=== PATIENT | female | born 1930 | race Caucasian/White ===

== ENCOUNTER → 2017-03-18 | Outpatient (CLI) | payer MEDICARE | LOC: LABPAT 13:53 | PROVIDERS: ATTEND Orthopaedic Surgery | DX: Z01.810 Encounter for preprocedural cardiovascular examination (principal); Z01.812 Encounter for preprocedural laboratory examination | CPT/HCPCS: 87070; 93005 ==

== ENCOUNTER → 2017-03-21 | Outpatient (CLI) | payer MEDICARE ==
[2017-03-21 12:04] LABS: Appearance,Urine Clear (Clear); Bilirubin,Urine Negative (Negative); Glucose,Urine (UA) 2+ (Negative); Ketones,Urine Negative (Negative); Leukocyte Esterase,Urine Negative (Negative); Nitrite,Urine Negative (Negative); Protein,Urine Negative (Negative); Specific Gravity,Urine 1.005 (1.001-1.035); UA Billing (MACRO vs. MICRO) CHEM; Urobilinogen,Urine <2.0 mg/dL (<2.0)
[2017-03-21 12:15] LABS: Basophils % (A) 0 %; CH 30.4; CHCM 34.4; Eosinophils # (A) 0.1 k/uL (0-0.7); Eosinophils % (A) 1 %; HCT 34.3 % (34.0-46.0); HDW 2.64; HGB 11.9 gm/dL (11.4-16.0); Luc # (Auto) 0.12; Luc % (Auto) 2; Lymphocytes # (A) 1.8 k/uL (1.0-4.8); Lymphocytes % (A) 27 %; MCH 30.8 pg (25.0-35.0); MCHC 34.6 g/dL (31.0-37.0); MCV 88.8 fL (80.0-100.0); Mean Platelet Volume 6.6; Monocytes # (A) 0.4 k/uL (0-1.0); Monocytes % (A) 6 %; Neutrophils # (A) 4.3 k/uL (1.3-7.7); Neutrophils % (A) 64 %; RBC 3.86 m/uL (3.80-5.40); WBC 6.8 k/uL (3.8-10.6); WBC (Perox) 6.83
[2017-03-21 12:18] LABS: Partial Thromboplastin Time 22.9 sec (22.0-30.0); Prothrombin Time 10.4 sec (9.0-12.0)
[2017-03-21 12:23] LABS: ALT 27 U/L (9-52); AST 37 U/L (14-36); Alkaline Phosphatase 54 U/L (38-126); Anion Gap 13 mmol/L; Blood Urea Nitrogen 13 mg/dL (7-17); Calcium 9.7 mg/dL (8.4-10.2); Carbon Dioxide 24 mmol/L (22-30); Chloride 98 mmol/L (98-107); Glucose 230 mg/dL (74-99); Non-African American GFR(MDRD) 53 (>60 ml/min/1.73 sqM); Potassium 4.7 mmol/L (3.5-5.1); Sodium 135 mmol/L (137-145); Total Bilirubin 0.6 mg/dL (0.2-1.3); Total Protein 6.9 g/dL (6.3-8.2)
== END ==
LOC: LABPAT 11:10
PROVIDERS: ATTEND Orthopaedic Surgery
DX: Z01.818 Encounter for other preprocedural examination (principal); Z79.01 Long term (current) use of anticoagulants
CPT/HCPCS: 80053; 81003; 85025; 85610; 85730

== ENCOUNTER 2017-04-01 07:24 | Inpatient (IN) | payer MEDICARE ==
[2017-03-28 10:55] VITALS: BMI 28.2
[~2017-04-01 07:24] MED LIST: ACETAMINOPHEN TAB 500 MG TAB PO ONE; HYDROmorphone 1 MG/ML 1 ML SYRINGE IVP PRN; MELOXICAM 7.5 MG TAB PO ONE; MIDAZOLAM 2 MG/2 ML VIAL IV PRN; TRANEXAMIC ACID 1,000 MG in SODIUM CHLORIDE 0.9% 100 ML IVPB ONE; ceFAZolin 2 GM in SODIUM CHLORIDE 0.9% 100 ML IVPB ONE
[2017-04-01] MEDS: LACTATED RINGERS 1,000 ML IV SCH ×3 (08:43→10:22)
[2017-04-01] MEDS: DEXAMETHASONE SOD PHOSPHATE 10 MG/ML 1 ML VIAL IV ONE ×2 (08:43→08:45)
[2017-04-01] MEDS: ONDANSETRON 4 MG/2 ML VIAL IVP ONE ×2 (08:43→08:45)
[2017-04-01 08:55] LABS: Glucose,Whole Blood 162 mg/dL (75-99)
[2017-04-01] MEDS ORDERED: ROPIVACAINE 1,100 MG, SODIUM CHLORIDE 0.9% 330 ML MISCELLANE PRN ×2 (10:10)
--- NOTE | 2017-04-01 10:12 | P.ONQ ---
Anesthesiology Proc Note - PNB - Peripheral Nerve Block Performed Left Adductor Canal Indication: Acute Post-Operative Pain, Requested by physician (Kiran Ferguson) Sedation Type: Sedate with meaningful contact maintained Preparation: Sterile Dressing Position: Supine Catheter: Indwelling (Pajunk) Needle Types: Other (see comment) (pajunk) Needle Size: 100mm (4") Needle Gauge: 18 Technique: Ultrasound Injectate: 0.5% Ropivacaine (see comment for volume) (18cc) Blood Aspirated: No Pain Paresthesia on Injection Noted: No Resistance on Injection: Normal Events: Uneventful and Well Tolerated
[2017-04-01] MEDS ORDERED: SODIUM CHLORIDE 0.9% 100 ML BAG ONE (10:22)
[2017-04-01] MEDS ORDERED: MIDAZOLAM 2 MG/2 ML VIAL ONE (10:22)
[2017-04-01] MEDS ORDERED: ceFAZolin 3,000 MG in SODIUM CHLORIDE 0.9% IRRIGATIO 3,000 ML IRRIGATION ONE (10:22)
[2017-04-01] MEDS ORDERED: TRANEXAMIC ACID 1,000 MG/10 ML VIAL ONE (10:22)
[2017-04-01] MEDS ORDERED: fentaNYL (PF) 50 MCG/ML 2 ML AMP ONE (10:22)
[2017-04-01] MEDS ORDERED: PROPOFOL 10 MG/ML 20 ML VIAL IV ONE (10:22)
[2017-04-01] MEDS ORDERED: SODIUM CHLORIDE 0.9% 100 ML with ceFAZolin 2,000 MG IV ONE ×2 (10:34)
[2017-04-01] MEDS: ROPIVACAINE 246.25 MG, EPINEPHrine 0.5 MG, KETOROLAC 30 MG, cloNIDine HCL/PF 80 MCG, WA... MISCELLANE ONE ×10 (10:59→11:38)
[2017-04-01] MEDS ORDERED: LACTATED RINGERS 1,000 ML IV ONE (11:16)
--- NOTE | 2017-04-01 11:40 | P.OP ---
Date of Procedure: 04/01/17 Preoperative Diagnosis: Severe osteoarthritis left knee Postoperative Diagnosis: Severe osteoarthritis left knee Procedure(s) Performed: Left total knee arthroplasty Implants: Christian [employer] Nephew Oxinium femoral component size 5, left Christian [employer] Nephew Suzan II left nonporous tibial baseplate size 4 Christian [employer] Nephew size 11 mm Legion XLPE dished articular insert, size 3-4 Christian [employer]hew Suzan II resurfacing patellar component, 32 mm All components were cemented using Marcia bone cement.. The articulation is ceramic on polyethylene. Anesthesia: spinal Surgeon: Kiran Ferguson Avionics Test Technician #1: Wanda Gomez Avionics Test Technician #2: Ariana Mckenzie Estimated Blood Loss (ml): 50 Pathology: other (Bone and cartilage) Condition: stable Disposition: PACU Indications for Procedure: After failure of conservative treatment we discussed the surgical and nonsurgical treatment options at length. Patient wishes to proceed with a total knee arthroplasty. Complications specific to this procedure were discussed at length, including but not limited to infection, bleeding, stiffness , and nerve injury. Patient is aware of all these complications and informed consent was obtained Operative Findings: The operative findings are consistent with severe osteoarthritis of the left knee Description of Procedure: Patient was seen in the preoperative area consent was reviewed and operative site was marked with a skin marker. An adductor canal pain catheter was placed by anesthesia in the preoperative area. Patient was then brought to the operating room and given preoperative antibiotics intravenously. A spinal anesthetic was administered by the anesthesia department. A tourniquet was placed on the upper thigh and the lower extremity was prepped and draped in usual sterile fashion. A gram of transexamic acid was given. A universal timeout was then performed which confirmed the patient's name, surgical site, ALLERGIES, and consent. The lower extremity was then exsanguinated and tourniquet was inflated to 250 mmHg. A standard and anterior midline approach to the knee was performed. The skin and subcutaneous tissue was dissected down to the patellar tendon. A medial parapatellar arthrotomy was then performed. The knee was then extended, the patellar was everted, and the knee was again flexed. Anterior horns of both menisci were excised, and a release was performed to the posterior medial aspect of the knee. On gross visual inspection, there was complete loss of articular cartilage in the medial and patellofemoral joint spaces. There was also significant cartilage damage in the lateral compartment. There were multiple periarticular osteophytes which were then removed with a Ronguer. The femoral canal was then opened with the appropriate drill, and the intramedullary femoral cutting guide was then placed and set for 4 of valgus. The distal femoral cutting block was then pinned in place, and the distal femur was then cut. The cutting block was then removed and the cut was checked for flatness. Next, the sizing guide was then placed and set for 3 external rotation based off of the epicondylar axis and Whitesides line. After the femur was sized, the appropriate 4-in-1 cutting block was then pinned in place. The anterior condyles were cut without notching. The posterior and chamfer cuts were performed while protecting the collateral ligaments. The cutting block was then removed, and the femoral canal was plugged with autologous bone. Attention was then directed to the tibia. The remaining ACL was removed with a Ronguer, and the tibia was then gently subluxed forward with a large bent knee retractor. Any remaining menisci was excised. The posterior lateral corner was cauterized in order to cauterize the lateral geniculate artery. The extra medullary tibial cutting guide was then placed, set for the appropriate rotation , slope, and depth of resection. The proximal tibia cutting guide was then pinned in place. Proximal tibia was then cut and sized. Next trials were then placed with the appropriate-sized insert. The knee was able to fully extend and flex to 130 and was stable throughout all range of motion. The knee was then extended, patella everted. Patella was then measured, and then using an osteotomy guide, the patella was cut at the appropriate level. The patella was then measured and drilled and the patella trial was then placed. The knee was then taken through range of motion with the patella trial and the patella tracked normally. The knee was then extended patella trial was then removed and the patella was everted. Knee was then flexed and lug holes were drilled through the femoral trial and the femoral trial was then removed. The tibial was then exposed, and the tibial broach guide was then pinned in place after it was set for the appropriate rotation to allow for the most coverage without overhang. The tibia was then reamed and broached. The cut surfaces of bone were then irrigated with pulsatile lavage. The posterior structures were injected with the ropivacaine solution. The knee was also irrigated with Irrisept solution. The components were then opened, the cement was mixed, and the components were then cemented in place. The cement was allowed to harden with the knee in full extension. While the cement was hardening, the remaining soft tissues were then injected with a ropivacaine solution, which consisted of 246.25 mg of ropivacaine, 0.5 mg of epinephrine, 30 mg of Toradol, 80 g of clonidine, and 48.45 mL of sterile water, for a total of 100 mL of fluid injected. After the cemented hardened. The tourniquet was released, and hemostasis was obtained. A second gram of transexamic acid was given. The knee was again irrigated. The knee was again taken through range of motion and found to be stable throughout all range of motion of 0-130 , and the patella tracked normally. The fascia was then closed with #2 strata fix suture. The subcutaneous tissue was closed with 3-0 Vicryl and 3-0 strata fix. Dermabond tape was used for the skin and placed with the knee in flexion. The patient was placed in a sterile dressing. Patient was then transferred to recovery room in stable condition. The seismic survey assistant C[place]AND Saravia was required due the complexity surgery and the need for a skilled registered nurse surgical services. She assisted in positioning, draping , retraction, and closure of the wound.
[2017-04-01] MEDS ORDERED: NA PHOS,M-B/NA PHOS,DI-BA 133 ML ENEMA RECTAL PRN (12:05)
[2017-04-01] MEDS ORDERED: hydrOXYzine PAMOATE 25 MG CAP PO PRN (12:05)
[2017-04-01] MEDS ORDERED: ONDANSETRON 4 MG/2 ML VIAL IVP PRN (12:05)
[2017-04-01] MEDS ORDERED: HYDROmorphone 1 MG/ML 1 ML SYRINGE IVP PRN ×3 (12:05)
[2017-04-01] MEDS ORDERED: DIAZEPAM 5 MG TAB PO PRN ×2 (12:05)
[2017-04-01] MEDS ORDERED: NALOXONE 0.4 MG/ML 1 ML VIAL IV PRN (12:05)
[2017-04-01] MEDS ORDERED: MAGNESIUM HYDROXIDE 2,400 MG/10 ML CUP PO PRN (12:05)
[2017-04-01] MEDS ORDERED: HYDROcodone/APAP 5-325MG 1 EACH TAB PO PRN (12:05)
[2017-04-01] MEDS ORDERED: BISACODYL 10 MG SUPP RECTAL PRN (12:05)
[2017-04-01 12:31] LABS: Glucose,Whole Blood 153 mg/dL (75-99)
--- NOTE | 2017-04-01 12:52 | XR ---
EXAMINATION TYPE: XR knee limited LT DATE OF EXAM: 04/01/2017 12:46 PM COMPARISON: NONE TECHNIQUE: Two views submitted HISTORY: Post op FINDINGS: There is a prosthetic knee in near anatomic alignment. There is soft tissue edema and emphysema. IMPRESSION: 1. Postoperative change. Appears in near-anatomic alignment
[2017-04-01] MEDS: INSULIN LISPRO (humaLOG) 300 UNIT/3 ML VIAL SQ SCH ×3 (14:50→21:38)
[2017-04-01 16:37] LABS: Glucose,Whole Blood 215 mg/dL (75-99)
[2017-04-01] MEDS: SODIUM CHLORIDE 0.9% 1,000 ML IV SCH (17:13)
[2017-04-01] MEDS: ceFAZolin 2 GM in SODIUM CHLORIDE 0.9% 100 ML IVPB SCH ×2 (17:13→23:17)
[2017-04-01] MEDS: glipiZIDE 10 MG TAB PO SCH (18:08)
[2017-04-01] MEDS: SENNOSIDES-DOCUSATE SODIUM 1 EACH TAB PO SCH (21:37)
[2017-04-01] MEDS: ATORVASTATIN 10 MG TAB PO SCH (21:37)
[2017-04-01] MEDS: amLODIPine 10 MG TAB PO SCH (21:37)
[2017-04-01] MEDS: metFORMIN 500 MG TAB PO SCH (21:37)
[2017-04-01 21:44] LABS: Glucose,Whole Blood 235 mg/dL (75-99)
[2017-04-01] MEDS: ASPIRIN 325 MG TAB PO SCH (23:18)
[2017-04-01] MEDS: HYDROcodone/APAP 5-325MG 1 EACH TAB PO PRN (23:18)
[2017-04-02 07:41] LABS: Glucose,Whole Blood 130 mg/dL (75-99)
[2017-04-02 08:09] LABS: Basophils % (A) 0 %; CH 30.4; CHCM 32.8; Eosinophils % (A) 0 %; HCT 31.3 % (34.0-46.0); HDW 2.48; HGB 10.1 gm/dL (11.4-16.0); Luc # (Auto) 0.16; Luc % (Auto) 1; Lymphocytes # (A) 1.6 k/uL (1.0-4.8); Lymphocytes % (A) 9 %; MCH 30.1 pg (25.0-35.0); MCHC 32.4 g/dL (31.0-37.0); Mean Platelet Volume 6.6; Monocytes # (A) 0.7 k/uL (0-1.0); Monocytes % (A) 4 %; Neutrophils % (A) 86 %; RBC 3.37 m/uL (3.80-5.40); RDW 13.3 % (11.5-15.5); WBC 17.5 k/uL (3.8-10.6); WBC (Perox) 18.94
[2017-04-02] MEDS: INSULIN LISPRO (humaLOG) 300 UNIT/3 ML VIAL SQ SCH ×4 (08:33→21:24)
[2017-04-02] MEDS: glipiZIDE 10 MG TAB PO SCH ×2 (08:37→18:09)
[2017-04-02] MEDS: ASPIRIN 325 MG TAB PO SCH ×2 (08:37→21:24)
[2017-04-02] MEDS: SODIUM CHLORIDE 0.9% 1,000 ML IV SCH (08:38)
[2017-04-02] MEDS: LINAGLIPTIN 5 MG TABLET PO SCH (08:38)
[2017-04-02] MEDS: LISINOPRIL 20 MG TAB PO SCH (08:39)
[2017-04-02] MEDS: metFORMIN 500 MG TAB PO SCH ×2 (08:40→21:24)
[2017-04-02] MEDS: MELOXICAM 7.5 MG TAB PO SCH (08:40)
[2017-04-02] MEDS: HYDROcodone/APAP 5-325MG 1 EACH TAB PO PRN ×2 (08:48→15:44)
[2017-04-02] MEDS: CALCIUM CARBONATE 500 MG CHEWABLE PO PRN ×3 (08:48→23:54)
--- NOTE | 2017-04-02 09:18 | P.PN ---
Progress Note - Text The patient is status post left adductor canal catheter placement. The catheter was placed for postoperative pain control, status post total left arthroplasty. Ropivacaine 0.2% is infusing at 8 mLs per hour. The patient has no complaints of left lower extremity numbness or weakness. Patient's VAS score is 2-10. Assessment: Patient's adductor canal catheter is in place and working appropriately. Plan: continue infusion and adjust it as needed.
--- NOTE | 2017-04-02 09:30 | P.PN ---
Subjective Principal diagnosis: s/p Left TKA This is a pleasant 86-year-old female who is status post left total knee arthroplasty. Today's postoperative day #1. The patient is seen and evaluated at bedside. Her pain is under fair control. She has no new complaints at this time. Objective - Vital Signs Vital signs: Vital Signs Temp 98 F 04/02/17 08:00 Pulse 84 04/02/17 08:00 Resp 18 04/02/17 08:00 BP 146/88 04/02/17 08:00 Pulse Ox 99 04/02/17 08:00 Intake & Output 04/01/17 04/02/17 04/02/17 18:59 06:59 18:59 Intake Total 2431 700 Output Total 1050 Balance 1381 700 Weight 73.482 kg Intake: IV 1951 600 Sodium Chloride 0.9% 1, 150 600 000 ml @ 50 mls/hr IV . Q20H ANDREA Rx#:[id number] Intake, IV Titration 100 Amount ceFAZolin 2 gm In Sodium 100 Chloride 0.9% 100 ml @ 100 mls/hr IVPB Q8HR ANDREA Rx#:[id number] Oral 480 Output: Urine 1000 Estimated Blood Loss 50 Other: # Voids 3 - Exam The patient does not appear in acute distress. Alert and orientated 3. Dressing is clean dry and intact. Incision appears fine with no erythema or active drainage. Calf is soft and nontender. Good foot and ankle motion without difficulty. Sensation and circulatory status is intact. - Labs CBC & Chem 7: 04/02/17 07:49 Labs: Abnormal Lab Results - Last 24 Hours (Table) 04/01/17 04/01/17 04/01/17 Range/Units 12:26 16:32 21:25 WBC (3.8-10.6) k/uL RBC (3.80-5.40) m/uL Hgb (11.4-16.0) gm/dL Hct (34.0-46.0) % Neutrophils # (1.3-7.7) k/uL POC Glucose (mg/dL) 153 H 215 H 235 H (75-99) mg/dL 04/02/17 04/02/17 Range/Units 07:28 07:49 WBC 17.5 H (3.8-10.6) k/uL RBC 3.37 L (3.80-5.40) m/uL Hgb 10.1 L (11.4-16.0) gm/dL Hct 31.3 L (34.0-46.0) % Neutrophils # 15.0 H (1.3-7.7) k/uL POC Glucose (mg/dL) 130 H (75-99) mg/dL Assessment and Plan (1) Status post left knee replacement Status: Acute (2) Primary osteoarthritis of left knee Status: Acute Plan: 1. Continue with routine postoperative care. 2. Anticoagulation with aspirin. 3. Physical therapy and CPM today. 4. Appreciate input from medicine. 5. Anticipate discharge to rehab likely on
[2017-04-02 11:42] LABS: Glucose,Whole Blood 201 mg/dL (75-99)
[2017-04-02 11:54] LABS: Hemoglobin A1C 6.4 % (4.2-6.1)
--- NOTE | 2017-04-02 14:19 | XR ---
EXAMINATION TYPE: XR chest 1V portable DATE OF EXAM: 04/02/2017 1:55 PM COMPARISON: Prior chest x-ray February HISTORY: Extended-care facility placement TECHNIQUE: Single frontal view of the chest is obtained. FINDINGS: There is no focal air space opacity, pleural effusion, or pneumothorax seen. The cardiac silhouette size is within normal limits. Patient is rotated. The osseous structures are intact. IMPRESSION: No acute process.
--- NOTE | 2017-04-02 14:56 | P.CONS ---
History of Present Illness - Reason for Consult Consult date: 04/02/17 Medical management Requesting physician: Kiran Ferguson - Chief Complaint Left knee osteoarthritis - History of Present Illness This is a 86-year-old female with past medical history noted below significant for severe left knee osteoarthritis that was admitted to the hospital for elective total left knee arthroplasty. Patient is postoperative day #1. She tolerated the procedure well. Her pain is relatively well-controlled. I was asked to see her for medical management. Patient is complaining of anxiety of being in the hospital. She did not get good sleep last night. She is doing fairly well otherwise. She was up with therapy earlier with no difficulty. Review of Systems Review of system: 14 points review of systems were obtained and were negative except to what were mentioned in the HPI. 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 LT KNEE OA. History of Any Multi-Drug Resistant Organisms: None Reported Past Surgical History: Cholecystectomy Additional Past Surgical History / Comment(s): EXC BALJEET CATARACTS. COLONOSCOPY. Past Anesthesia/Blood Transfusion Reactions: No Reported Reaction Past Psychological History: No Psychological Hx Reported Smoking Status: Never smoker Past Alcohol Use History: None Reported Past Drug Use History: None Reported - Past Family History Mother Family Medical History: Cancer, Deep Vein Thrombosis (DVT) Medications and Allergies Home Medications Medication Instructions Recorded Confirmed Type RX: metFORMIN HCL [Glucophage] 500 mg PO BID 03/16/15 04/01/17 History Acetaminophen Tab [Tylenol Tab] 1,000 mg PO Q6HR PRN 03/28/17 04/01/17 History Antacid (Otc, Generic) 1 - 2 tab PO BID PRN 03/28/17 04/01/17 History Ascorbic Acid [Vitamin C] 500 mg PO DAILY 03/28/17 04/01/17 History B Complex-Vit C-Vit E-Zinc [Z-Bec] 1 tab PO DAILY 03/28/17 04/01/17 History Cholecalciferol [Vitamin D3] 2,000 unit PO DAILY 03/28/17 04/01/17 History Lovastatin [Lovastatin] 40 mg PO HS 03/28/17 04/01/17 History Magnesium Oxide [Mag-Ox] 250 mg PO MOWEFR 03/28/1708/17 History Multivits-Min/Iron/FA/Lutein 1 tab PO DAILY 03/28/17 04/01/17 History [Centrum Silver Women Tablet] Naproxen Sodium [Aleve] 220 mg PO BID 03/28/17 04/01/17 History RX: Zinc 50 mg PO 03/28/17 04/01/17 History Ubidecarenone [Co Q-10] 300 mg PO DAILY 03/28/17 04/01/17 History amLODIPine [Norvasc] 10 mg PO HS 03/28/17 04/01/17 History diphenhydrAMINE [Benadryl] 25 mg PO BID PRN 03/28/17 04/01/17 History glipiZIDE [Glipizide Xl] 10 mg PO 0900,1800 03/28/17 04/01/17 History sitaGLIPtin PHOSPHATE [Januvia] 100 mg PO DAILY 03/28/17 04/01/17 History Lisinopril [Zestril] 40 mg PO DAILY 04/01/17 04/01/17 History Allergies Allergy/AdvReac Type Severity Reaction Status Date / Time No Known Allergies Allergy Verified 04/01/17 08:21 Physical Exam Vitals: Vital Signs Temp Pulse Resp BP Pulse Ox 04/02/17 14:00 97.5 F L 86 16 116/71 99 04/02/17 08:00 98 F 84 18 146/88 99 04/01/17 19:05 98.6 F 77 18 162/79 98 04/01/17 15:36 97 04/01/17 15:00 97 124/98 99 Intake and Output 04/01/17 04/02/17 04/02/17 22:59 06:59 14:59 Intake Total 480 700 240 Output Total 1000 Balance -520 700 240 Intake: IV 600 Sodium Chloride 0.9% 1, 600 000 ml @ 50 mls/hr IV . Q20H ANDREA Rx#:[id number] Intake, IV Titration 100 Amount ceFAZolin 2 gm In Sodium 100 Chloride 0.9% 100 ml @ 100 mls/hr IVPB Q8HR ANDREA Rx#:[id number] Oral 480 240 Output: Urine 1000 Other: # Voids 3 General: The patient is awake and alert, in no distress Eye: there is normal conjunctiva bilaterally. Neck: The neck is supple, there is no JVD. Cardiovascular: Normal S1-S2, no S3-S4, no murmurs. Respiratory: Lungs clear to auscultation bilaterally Gastrointestinal: Abdomen is soft, nontender Musculoskeletal: There is no pedal edema. Neurological:. Speech is normal. Skin: Skin is warm and dry Results CBC & Chem 7: 04/02/17 07:49 Labs: Abnormal Lab Results - Last 24 Hours (Table) 04/01/17 04/01/17 04/02/17 Range/Units 16:32 21:25 07:28 WBC (3.8-10.6) k/uL RBC (3.80-5.40) m/uL Hgb (11.4-16.0) gm/dL Hct (34.0-46.0) % Neutrophils # (1.3-7.7) k/uL POC Glucose (mg/dL) 215 H 235 H 130 H (75-99) mg/dL Hemoglobin A1c (4.2-6.1) % 04/02/17 04/02/17 04/02/17 Range/Units 07:49 07:49 11:34 WBC 17.5 H (3.8-10.6) k/uL RBC 3.37 L (3.80-5.40) m/uL Hgb 10.1 L (11.4-16.0) gm/dL Hct 31.3 L (34.0-46.0) % Neutrophils # 15.0 H (1.3-7.7) k/uL POC Glucose (mg/dL) 201 H (75-99) mg/dL Hemoglobin A1c 6.4 H (4.2-6.1) % Assessment and Plan Plan: 1. Severe osteoarthritis of the left knee postoperative day #1 status post total left knee arthroplasty 2. DVT prophylaxis per orthopedic protocol currently on subcu heparin 3. Essential hypertension: Blood pressure within acceptable range 4. Type 2 diabetes mellitus relatively well-controlled 5. Mixed hyperlipidemia 6. History of non-Hodgkin lymphoma now in remission Today, I reviewed her medication list and lab work results. Continue current regimen. I would continue to follow up on her closely. Thank you very much for the consultation.
[2017-04-02 17:03] LABS: Glucose,Whole Blood 160 mg/dL (75-99)
[2017-04-02 20:22] LABS: Glucose,Whole Blood 176 mg/dL (75-99)
[2017-04-02] MEDS: amLODIPine 10 MG TAB PO SCH (21:24)
[2017-04-02] MEDS: ATORVASTATIN 10 MG TAB PO SCH (21:24)
[2017-04-02] MEDS: ZOLPIDEM 5 MG TAB PO PRN (21:24)
[2017-04-02] MEDS: SENNOSIDES-DOCUSATE SODIUM 1 EACH TAB PO SCH (21:24)
[2017-04-03 02:48] VITALS: RESP 16
[2017-04-03] MEDS: SODIUM CHLORIDE 0.9% 1,000 ML IV SCH ×2 (05:23→23:44)
[2017-04-03 07:20] LABS: Basophils # (A) 0.1 k/uL (0-0.2); Basophils % (A) 1 %; CH 30.5; CHCM 33.6; Eosinophils # (A) 0.1 k/uL (0-0.7); Eosinophils % (A) 1 %; HCT 27.5 % (34.0-46.0); HDW 2.48; Luc # (Auto) 0.13; Luc % (Auto) 1; Lymphocytes # (A) 1.8 k/uL (1.0-4.8); Lymphocytes % (A) 19 %; MCH 29.8 pg (25.0-35.0); MCHC 32.7 g/dL (31.0-37.0); MCV 91.3 fL (80.0-100.0); Mean Platelet Volume 6.8; Monocytes # (A) 0.6 k/uL (0-1.0); Monocytes % (A) 7 %; Neutrophils # (A) 6.9 k/uL (1.3-7.7); Neutrophils % (A) 72 %; RBC 3.01 m/uL (3.80-5.40); RDW 13.6 % (11.5-15.5); WBC 9.5 k/uL (3.8-10.6); WBC (Perox) 9.63
[2017-04-03 07:33] LABS: Glucose,Whole Blood 89 mg/dL (75-99)
[2017-04-03 07:35] LABS: Anion Gap 10 mmol/L; Blood Urea Nitrogen 17 mg/dL (7-17); Carbon Dioxide 22 mmol/L (22-30); Chloride 104 mmol/L (98-107); Glucose 78 mg/dL (74-99); Non-African American GFR(MDRD) >60 (>60 ml/min/1.73 sqM); Potassium 4.2 mmol/L (3.5-5.1); Sodium 136 mmol/L (137-145)
--- NOTE | 2017-04-03 08:48 | P.PN ---
Subjective Principal diagnosis: s/p Left TKA This is a pleasant 86-year-old female who is status post left total knee arthroplasty. Today's postoperative day #2. The patient is seen and evaluated at bedside with Dr. Ferguson. Her pain is under fair control. She has no new complaints at this time. Objective - Vital Signs Vital signs: Vital Signs Temp 98.2 F 04/03/17 07:00 Pulse 96 04/03/17 07:00 Resp 16 04/03/17 07:00 BP 152/68 04/03/17 07:00 Pulse Ox 97 04/03/17 07:00 Intake & Output 04/02/17 04/03/17 04/03/17 18:59 06:59 18:59 Intake Total 480 Output Total 1000 Balance -520 Weight 73.482 kg Intake: Oral 480 Output: Urine 1000 Other: # Voids 2 2 - Exam The patient does not appear in acute distress. Alert and orientated 3. Dressing is clean dry and intact. Incision appears fine with no erythema or active drainage. Calf is soft and nontender. Good foot and ankle motion without difficulty. Sensation and circulatory status is intact. - Labs CBC & Chem 7: 04/03/17 06:41 04/03/17 06:41 Labs: Abnormal Lab Results - Last 24 Hours (Table) 04/02/17 04/02/17 04/02/17 Range/Units 07:49 11:34 17:02 RBC (3.80-5.40) m/uL Hgb (11.4-16.0) gm/dL Hct (34.0-46.0) % Sodium (137-145) mmol/L POC Glucose (mg/dL) 201 H 160 H (75-99) mg/dL Hemoglobin A1c 6.4 H (4.2-6.1) % 04/02/17 04/03/17 04/03/17 Range/Units 20:21 06:41 06:41 RBC 3.01 L (3.80-5.40) m/uL Hgb 9.0 L (11.4-16.0) gm/dL Hct 27.5 L (34.0-46.0) % Sodium 136 L (137-145) mmol/L POC Glucose (mg/dL) 176 H (75-99) mg/dL Hemoglobin A1c (4.2-6.1) % Assessment and Plan (1) Status post left knee replacement Status: Acute (2) Primary osteoarthritis of left knee Status: Acute Plan: 1. Continue with routine postoperative care. 2. Anticoagulation with aspirin. 3. Physical therapy and CPM today. 4. Appreciate input from medicine. 5. Anticipate discharge to rehab likely on
[2017-04-03] MEDS: ASPIRIN 325 MG TAB PO SCH ×2 (09:25→20:41)
[2017-04-03] MEDS: INSULIN LISPRO (humaLOG) 300 UNIT/3 ML VIAL SQ SCH ×4 (09:25→20:45)
[2017-04-03] MEDS: glipiZIDE 10 MG TAB PO SCH ×3 (09:26→20:45)
[2017-04-03] MEDS: metFORMIN 500 MG TAB PO SCH ×2 (09:26→20:41)
[2017-04-03] MEDS: MELOXICAM 7.5 MG TAB PO SCH (09:26)
[2017-04-03] MEDS: LINAGLIPTIN 5 MG TABLET PO SCH (09:27)
[2017-04-03] MEDS: LISINOPRIL 20 MG TAB PO SCH (09:27)
[2017-04-03 11:14] LABS: Glucose,Whole Blood 224 mg/dL (75-99)
[2017-04-03] MEDS: traMADol 50 MG TAB PO SCH ×3 (11:20→21:42)
--- NOTE | 2017-04-03 11:54 | P.PN ---
Subjective Patient is doing fairly well today. She has good sleep last night. Pain is relatively well-controlled. Objective - Vital Signs Vital signs: Vital Signs Temp 98.2 F 04/03/17 07:00 Pulse 96 04/03/17 07:00 Resp 16 04/03/17 07:00 BP 152/68 04/03/17 07:00 Pulse Ox 97 04/03/17 07:00 Intake & Output 04/02/17 04/03/17 04/03/17 18:59 06:59 18:59 Intake Total 480 240 Output Total 1000 Balance -520 240 Weight 73.482 kg Intake: Oral 480 240 Output: Urine 1000 Other: # Voids 2 2 - Exam General: The patient is awake and alert, in no distress Eye: there is normal conjunctiva bilaterally. Neck: The neck is supple, there is no JVD. Cardiovascular: Normal S1-S2, no S3-S4, no murmurs. Respiratory: Lungs clear to auscultation bilaterally Gastrointestinal: Abdomen is soft, nontender Musculoskeletal: There is no pedal edema. Neurological:. Speech is normal. Skin: Skin is warm and dry - Labs CBC & Chem 7: 04/03/17 06:41 04/03/17 06:41 Labs: Abnormal Lab Results - Last 24 Hours (Table) 04/02/17 04/02/17 04/02/17 Range/Units 07:49 17:02 20:21 RBC (3.80-5.40) m/uL Hgb (11.4-16.0) gm/dL Hct (34.0-46.0) % Sodium (137-145) mmol/L POC Glucose (mg/dL) 160 H 176 H (75-99) mg/dL Hemoglobin A1c 6.4 H (4.2-6.1) % 04/03/17 04/03/17 04/03/17 Range/Units 06:41 06:41 11:04 RBC 3.01 L (3.80-5.40) m/uL Hgb 9.0 L (11.4-16.0) gm/dL Hct 27.5 L (34.0-46.0) % Sodium 136 L (137-145) mmol/L POC Glucose (mg/dL) 224 H (75-99) mg/dL Hemoglobin A1c (4.2-6.1) % Assessment and Plan Plan: 1. Severe osteoarthritis of the left knee postoperative day #2 status post total left knee arthroplasty 2. DVT prophylaxis per orthopedic protocol currently on full dose aspirin twice daily 3. Essential hypertension: Blood pressure within acceptable range 4. Type 2 diabetes mellitus relatively well-controlled 5. Mixed hyperlipidemia 6. History of non-Hodgkin lymphoma now in remission 7. Physical debility: Seen and evaluated by PT/OT. Plan to discharge to [facility] for subacute rehab. Today, I reviewed her medication list and lab work results. Continue current regimen. I would continue to follow up on her closely. Thank you very much for the consultation.
--- NOTE | 2017-04-03 12:20 | P.PN ---
Progress Note - Text 0742 anesthesia POD OD 2. Patient is status post left TKR under spinal anesthesia with a left adductor canal catheter placed for postoperative pain relief. With ropivacaine running at 10 mL/h patient's VAS is (2, 4). Catheter site is clean dry and intact.
[2017-04-03 16:53] LABS: Glucose,Whole Blood 60 mg/dL (75-99)
[2017-04-03 17:00] LABS: Glucose,Whole Blood 62 mg/dL (75-99)
[2017-04-03 17:25] LABS: Glucose,Whole Blood 99 mg/dL (75-99)
[2017-04-03 20:10] LABS: Glucose,Whole Blood 212 mg/dL (75-99)
[2017-04-03] MEDS: amLODIPine 10 MG TAB PO SCH (20:41)
[2017-04-03] MEDS: ATORVASTATIN 10 MG TAB PO SCH (20:41)
[2017-04-03] MEDS: SENNOSIDES-DOCUSATE SODIUM 1 EACH TAB PO SCH (20:41)
[2017-04-03] MEDS: ZOLPIDEM 5 MG TAB PO PRN (21:42)
[2017-04-03] MEDS: CALCIUM CARBONATE 500 MG CHEWABLE PO PRN (21:42)
[2017-04-04 07:06] LABS: Glucose,Whole Blood 74 mg/dL (75-99)
[2017-04-04 07:18] LABS: Basophils % (A) 0 %; CH 30.3; Eosinophils # (A) 0.1 k/uL (0-0.7); Eosinophils % (A) 2 %; HCT 25.5 % (34.0-46.0); HDW 2.54; HGB 8.6 gm/dL (11.4-16.0); Luc # (Auto) 0.16; Luc % (Auto) 2; Lymphocytes # (A) 2.1 k/uL (1.0-4.8); Lymphocytes % (A) 24 %; MCH 30.1 pg (25.0-35.0); MCHC 33.7 g/dL (31.0-37.0); MCV 89.4 fL (80.0-100.0); Mean Platelet Volume 6.7; Monocytes # (A) 0.5 k/uL (0-1.0); Monocytes % (A) 6 %; Neutrophils # (A) 5.6 k/uL (1.3-7.7); Neutrophils % (A) 66 %; RBC 2.85 m/uL (3.80-5.40); RDW 13.4 % (11.5-15.5); WBC 8.5 k/uL (3.8-10.6); WBC (Perox) 8.96
[2017-04-04 07:28] LABS: Anion Gap 8 mmol/L; Blood Urea Nitrogen 16 mg/dL (7-17); Calcium 8.8 mg/dL (8.4-10.2); Carbon Dioxide 25 mmol/L (22-30); Chloride 99 mmol/L (98-107); Glucose 71 mg/dL (74-99); Non-African American GFR(MDRD) >60 (>60 ml/min/1.73 sqM); Potassium 4.1 mmol/L (3.5-5.1); Sodium 132 mmol/L (137-145)
[2017-04-04 08:10] VITALS: BP 148/65; PULSE 97; TEMP 98.1
--- NOTE | 2017-04-04 08:25 | P.DS ---
Providers Date of admission: 04/01/17 07:59 Expected date of discharge: 04/04/17 Attending physician: Kiran Ferguson Consults: 04/01/17 12:05 Consult Physician Routine Consulting Provider: Marquis Moreno Consult Reason/Comments: medical management Do you want consulting provider notified?: Yes Primary care physician: Marquis [facility] Course: This is a 86-year-old female with known history of degenerative arthritis of the left knee. The patient presents for evaluation. After discussion and consideration patient elects to proceed with total knee arthroplasty. The patient is seen preoperatively by Dr. Ferguson and cleared for surgery. Patient is admitted to [facility] on 04/01/2017 for total knee arthroplasty. The procedures performed without complication or sequelae. The patient is doing well postoperatively. Labs and vital signs are stable on day of discharge. On day of discharge patient's knee incision is healing well. There is minimal erythema. There is no drainage noted at this time. There is minimal soft tissue swelling to the knee. Patient has full foot and ankle motion without difficulty or pain. Neurovascular status to the left lower extremity is intact. Patient has been up and walking with physical therapy. Patient is discharged to rehab in good condition. Please see med rec for accurate list of home medications. Plan - Discharge Summary New Discharge Prescriptions: Aspirin 325 mg PO BID #60 tab HYDROcodone/APAP 5-325MG [[place] 5-325] 1 - 2 tab PO Q4-6H PRN #90 tab PRN Reason: Pain Sennosides-Docusate Sodium [Senokot-S] 1 tab PO BID #60 tablet Discharge Medication List metFORMIN HCL [Glucophage] 500 mg PO BID 03/16/15 [History] Acetaminophen Tab [Tylenol Tab] 1,000 mg PO Q6HR PRN 03/28/17 [History] Antacid (Otc, Generic) 1 - 2 tab PO BID PRN 03/28/17 [History] Ascorbic Acid [Vitamin C] 500 mg PO DAILY 03/28/17 [History] B Complex-Vit C-Vit E-Zinc [Z-Bec] 1 tab PO DAILY 03/28/17 [History] Cholecalciferol [Vitamin D3] 2,000 unit PO DAILY 03/28/17 [History] Lovastatin [Lovastatin] 40 mg PO HS 03/28/17 [History] Magnesium Oxide [Mag-Ox] 250 mg PO MOWEFR 03/28/17 [History] Multivits-Min/Iron/FA/Lutein [Centrum Silver Women Tablet] 1 tab PO DAILY [History] Naproxen Sodium [Aleve] 220 mg PO BID 03/28/17 [History] Ubidecarenone [Co Q-10] 300 mg PO DAILY 03/28/17 [History] Zinc 50 mg PO MOWEFR 03/28/17 [History] amLODIPine [Norvasc] 10 mg PO HS 03/28/17 [History] diphenhydrAMINE [Benadryl] 25 mg PO BID PRN 03/28/17 [History] glipiZIDE [Glipizide Xl] 10 mg PO 0900,1800 03/28/17 [History] sitaGLIPtin PHOSPHATE [Januvia] 100 mg PO DAILY 03/28/17 [History] Lisinopril [Zestril] 40 mg PO DAILY 04/01/17 [History] Aspirin 325 mg PO BID #60 tab 04/04/17 [Rx] HYDROcodone/APAP 5-325MG [[place] 5-325] 1 - 2 tab PO Q4-6H PRN #90 tab 04/04/17 [ Rx] Sennosides-Docusate Sodium [Senokot-S] 1 tab PO BID #60 tablet 04/04/17 [Rx] Follow up Appointment(s)/Referral(s): [facility], [NON-STAFF] - As Needed Ambulatory/Diagnostic Orders: Continuous Passive Motion (CPM) Machine [DME.AMB1] Time Frame: 2 Weeks, Location : Determined By Patient Activity/Diet/Wound Care/Special Instructions: Weightbearing as tolerated with a walker CPM 5-6h daily Daily dressing changes, keep incision clean and dry May shower if no drainage from incision [facility] with questions or concerns [phone] Discharge Disposition: TRANSFER TO SNF/ECF
[2017-04-04] MEDS: traMADol 50 MG TAB PO SCH ×2 (09:32→13:21)
[2017-04-04] MEDS: glipiZIDE 10 MG TAB PO SCH (09:33)
[2017-04-04] MEDS: MELOXICAM 7.5 MG TAB PO SCH (09:33)
[2017-04-04] MEDS: LISINOPRIL 20 MG TAB PO SCH (09:33)
[2017-04-04] MEDS: ASPIRIN 325 MG TAB PO SCH (09:33)
[2017-04-04] MEDS: INSULIN LISPRO (humaLOG) 300 UNIT/3 ML VIAL SQ SCH ×2 (09:34→13:07)
[2017-04-04] MEDS: metFORMIN 500 MG TAB PO SCH (09:34)
[2017-04-04] MEDS: LINAGLIPTIN 5 MG TABLET PO SCH (11:25)
[2017-04-04 11:58] LABS: Glucose,Whole Blood 223 mg/dL (75-99)
--- NOTE | 2017-04-04 12:58 | P.PN ---
Subjective Patient is doing fairly well today. Objective - Vital Signs Vital signs: Vital Signs Temp 98.1 F 04/04/17 07:00 Pulse 97 04/04/17 07:00 Resp 16 04/04/17 07:00 BP 148/65 04/04/17 07:00 Pulse Ox 98 04/04/17 07:00 Intake & Output 04/03/17 04/04/17 04/04/17 18:59 06:59 18:59 Intake Total 340 240 Output Total 1000 Balance -660 240 Intake: Oral 340 240 Output: Urine 1000 Other: Voiding Method Toilet # Voids 2 1 - Exam General: The patient is awake and alert, in no distress Eye: there is normal conjunctiva bilaterally. Neck: The neck is supple, there is no JVD. Cardiovascular: Normal S1-S2, no S3-S4, no murmurs. Respiratory: Lungs clear to auscultation bilaterally Gastrointestinal: Abdomen is soft, nontender Musculoskeletal: There is no pedal edema. Neurological:. Speech is normal. Skin: Skin is warm and dry - Labs CBC & Chem 7: 04/04/17 06:45 04/04/17 06:45 Labs: Abnormal Lab Results - Last 24 Hours (Table) 04/03/17 04/03/17 04/03/17 Range/Units 16:38 16:54 20:08 RBC (3.80-5.40) m/uL Hgb (11.4-16.0) gm/dL Hct (34.0-46.0) % Sodium (137-145) mmol/L Glucose (74-99) mg/dL POC Glucose (mg/dL) 60 L 62 L 212 H (75-99) mg/dL 04/04/17 04/04/17 04/04/17 Range/Units 06:45 06:45 06:50 RBC 2.85 L (3.80-5.40) m/uL Hgb 8.6 L (11.4-16.0) gm/dL Hct 25.5 L (34.0-46.0) % Sodium 132 L (137-145) mmol/L Glucose 71 L (74-99) mg/dL POC Glucose (mg/dL) 74 L (75-99) mg/dL 04/04/17 Range/Units 11:53 RBC (3.80-5.40) m/uL Hgb (11.4-16.0) gm/dL Hct (34.0-46.0) % Sodium (137-145) mmol/L Glucose (74-99) mg/dL POC Glucose (mg/dL) 223 H (75-99) mg/dL Assessment and Plan Plan: 1. Severe osteoarthritis of the left knee postoperative day #2 status post total left knee arthroplasty 2. DVT prophylaxis per orthopedic protocol currently on full dose aspirin twice daily 3. Essential hypertension: Blood pressure within acceptable range 4. Type 2 diabetes mellitus relatively well-controlled 5. Mixed hyperlipidemia 6. History of non-Hodgkin lymphoma now in remission 7. Physical debility: Seen and evaluated by PT/OT. Plan to discharge to [facility] for subacute rehab. Today, I reviewed her medication list and lab work results. Continue current regimen.
== END 2017-04-04 15:08 | DRG 470 ==
LOC: 2ORMAIN 07:59 → 3SUR 12:02
PROVIDERS: ADMIT Orthopaedic Surgery; ATTEND Orthopaedic Surgery
PROC: 0SRD0J9 Replacement of Left Knee Joint with Synthetic Substitute, Cemented, Open Approach (ICD-10-PCS; principal; 2017-04-01 09:45)
DX: M17.12 Unilateral primary osteoarthritis, left knee (principal); E11.9 Type 2 diabetes mellitus without complications; I10 Essential (primary) hypertension; E78.5 Hyperlipidemia, unspecified; F41.9 Anxiety disorder, unspecified; K21.9 Gastro-esophageal reflux disease without esophagitis; Z85.72 Personal history of non-Hodgkin lymphomas; Z79.899 Other long term (current) drug therapy; Z79.84 Long term (current) use of oral hypoglycemic drugs
CPT/HCPCS: 71010; 80048; 83036; 85025; 88300

== ENCOUNTER → 2017-06-12 | Outpatient (CLI) | payer MEDICARE ==
--- NOTE | 2017-06-13 08:31 | MM ---
Reason for exam: screening (asymptomatic). Last mammogram was performed 1 year and 5 months ago. History: Patient is postmenopausal and has history of other cancer at age 72. Family history of breast cancer in aunt at age 70. Physical Findings: A clinical breast exam by your physician is recommended on an annual basis and results should be correlated with mammographic findings. MG 3D Screening Mammo W/Cad Bilateral CC and MLO view(s) were taken. Prior study comparison: January 10, 2016, bilateral MG screening mammo w CAD. October 28, 2014, bilateral MG screening mammo w CAD. The breast tissue is heterogeneously dense. This may lower the sensitivity of mammography. Finding: There are stable typically benign calcifications. There is no discrete abnormality. No significant changes in finding since January 10, 2016 and October 28, 2014. ASSESSMENT: Benign, BI-RAD 2 RECOMMENDATION: Routine screening mammogram of both breasts in 1 year.
== END | disposition home or self-care (01) ==
LOC: RADMAMWWP 14:30
PROVIDERS: ATTEND Internal Medicine
DX: Z12.31 Encounter for screening mammogram for malignant neoplasm of breast (principal)
CPT/HCPCS: 77063; G0202

== ENCOUNTER 2018-03-31 07:13 | Inpatient (IN) | payer MEDICARE ==
[2018-03-21 08:07] VITALS: BMI 29.0
[~2018-03-31 07:13] MED LIST changes: -HYDROmorphone 1 MG/ML 1 ML SYRINGE IVP PRN; +LIDOCAINE 1% 20 ML VIAL (10MG/ML) FOR IV START INTRADERMA PRN; -MIDAZOLAM 2 MG/2 ML VIAL IV PRN; +MORPHINE SULFATE 2 MG/ML SYRINGE IV PRN; +ONDANSETRON ODT 4 MG TAB PO ONE; +ROPIVACAINE 246.25 MG, EPINEPHrine 0.5 MG, KETOROLAC 30 MG, cloNIDine HCL/PF 80 MCG, WA... MISCELLANE ONE; -ceFAZolin 2 GM in SODIUM CHLORIDE 0.9% 100 ML IVPB ONE; +ceFAZolin IN SWFI 2 GM/20 ML SYRINGE IVP ONE
[2018-03-31 08:16] LABS: Glucose,Whole Blood 163 mg/dL (75-99)
[2018-03-31] MEDS: LACTATED RINGERS 1,000 ML IV SCH (08:22)
[2018-03-31] MEDS ORDERED: ONDANSETRON 4 MG/2 ML VIAL IVP ONE (08:22)
[2018-03-31] MEDS ORDERED: MIDAZOLAM 2 MG/2 ML VIAL ONE ×2 (08:24→10:13)
[2018-03-31] MEDS ORDERED: MORPHINE SULFATE 4 MG/ML SYRINGE IVP PRN ×4 (09:41)
[2018-03-31] MEDS ORDERED: BISACODYL 10 MG SUPP RECTAL PRN (09:41)
[2018-03-31] MEDS ORDERED: hydrOXYzine PAMOATE 25 MG CAP PO PRN (09:41)
[2018-03-31] MEDS ORDERED: NA PHOS,M-B/NA PHOS,DI-BA 133 ML ENEMA RECTAL PRN (09:41)
[2018-03-31] MEDS ORDERED: DIAZEPAM 5 MG TAB PO PRN ×2 (09:41)
[2018-03-31] MEDS ORDERED: ONDANSETRON 4 MG/2 ML VIAL IVP PRN (09:41)
[2018-03-31] MEDS ORDERED: MAGNESIUM HYDROXIDE 2,400 MG/10 ML CUP PO PRN (09:41)
[2018-03-31] MEDS ORDERED: HYDROcodone/APAP 5-325MG 1 EACH TAB PO PRN (09:41)
[2018-03-31] MEDS ORDERED: NALOXONE 0.4 MG/ML 1 ML VIAL IV PRN (09:41)
[2018-03-31] MEDS ORDERED: fentaNYL (PF) 50 MCG/ML 2 ML AMP ONE (10:13)
[2018-03-31] MEDS ORDERED: SODIUM CHLORIDE 0.9% 100 ML BAG ONE (10:13)
[2018-03-31] MEDS ORDERED: TRANEXAMIC ACID 1,000 MG/10 ML VIAL ONE (10:13)
[2018-03-31] MEDS ORDERED: ceFAZolin 3,000 MG in SODIUM CHLORIDE 0.9% IRRIGATIO 3,000 ML IRRIGATION ONE (10:44)
--- NOTE | 2018-03-31 11:15 | P.OP ---
Date of Procedure: 03/31/18 Preoperative Diagnosis: Severe osteoarthritis right knee Postoperative Diagnosis: Severe osteoarthritis right knee Procedure(s) Performed: Right total knee arthroplasty Implants: [employer]hew Oxinium femoral component size 5, right [employer] Suzan II right nonporous tibial baseplate size 4 [employer]hew size 13 mm Legion XLPE dished articular insert, size 3-4 [employer] Suzan II resurfacing patellar component, 32 mm All components were cemented using Marcia bone cement.. The articulation is Oxinium on polyethylene. Anesthesia: spinal Surgeon: Kiran Ferguson Cigarette Making Examiner #1: Ariana Chavis Estimated Blood Loss (ml): 50 Pathology: other (Bone and cartilage) Condition: stable Disposition: PACU Indications for Procedure: After failure of conservative treatment we discussed the surgical and nonsurgical treatment options at length. Patient wishes to proceed with a total knee arthroplasty. Complications specific to this procedure were discussed at length, including but not limited to infection, bleeding, stiffness , and nerve injury. Patient is aware of all these complications and informed consent was obtained Operative Findings: The operative findings are consistent with severe osteoarthritis of the right knee Description of Procedure: Patient was seen in the preoperative area consent was reviewed and operative site was marked with a skin marker. An adductor canal pain catheter was placed by anesthesia in the preoperative area. Patient was then brought to the operating room and given preoperative antibiotics intravenously. A spinal anesthetic was administered by the anesthesia department. A tourniquet was placed on the upper thigh and the lower extremity was prepped and draped in usual sterile fashion. A gram of transexamic acid was given. A universal timeout was then performed which confirmed the patient's name, surgical site, ALLERGIES, and consent. The lower extremity was then exsanguinated and tourniquet was inflated to 250 mmHg. A standard and anterior midline approach to the knee was performed. The skin and subcutaneous tissue was dissected down to the patellar tendon. A medial parapatellar arthrotomy was then performed. The knee was then extended, the patellar was everted, and the knee was again flexed. Anterior horns of both menisci were excised, and a release was performed to the posterior medial aspect of the knee. On gross visual inspection, there was complete loss of articular cartilage in the medial and patellofemoral joint spaces. There was also significant cartilage damage in the lateral compartment. There were multiple periarticular osteophytes which were then removed with a Ronguer. The femoral canal was then opened with the appropriate drill, and the intramedullary femoral cutting guide was then placed and set for 4 of valgus. The distal femoral cutting block was then pinned in place, and the distal femur was then cut. The cutting block was then removed and the cut was checked for flatness. Next, the sizing guide was then placed and set for 3 external rotation based off of the epicondylar axis and Whitesides line. After the femur was sized, the appropriate 4-in-1 cutting block was then pinned in place. The anterior condyles were cut without notching. The posterior and chamfer cuts were performed while protecting the collateral ligaments. The cutting block was then removed, and the femoral canal was plugged with autologous bone. Attention was then directed to the tibia. The remaining ACL was removed with a Ronguer, and the tibia was then gently subluxed forward with a large bent knee retractor. Any remaining menisci was excised. The posterior lateral corner was cauterized in order to cauterize the lateral geniculate artery. The extra medullary tibial cutting guide was then placed, set for the appropriate rotation , slope, and depth of resection. The proximal tibia cutting guide was then pinned in place. Proximal tibia was then cut and sized. Next trials were then placed with the appropriate-sized insert. The knee was able to fully extend and flex to 130 and was stable throughout all range of motion. The knee was then extended, patella everted. Patella was then measured, and then using an osteotomy guide, the patella was cut at the appropriate level. The patella was then measured and drilled and the patella trial was then placed. The knee was then taken through range of motion with the patella trial and the patella tracked normally. The knee was then extended patella trial was then removed and the patella was everted. Knee was then flexed and lug holes were drilled through the femoral trial and the femoral trial was then removed. The tibial was then exposed, and the tibial broach guide was then pinned in place after it was set for the appropriate rotation to allow for the most coverage without overhang. The tibia was then reamed and broached. The cut surfaces of bone were then irrigated with pulsatile lavage. The posterior structures were injected with the ropivacaine solution. The knee was also irrigated with Irrisept solution. The components were then opened, the cement was mixed, and the components were then cemented in place. The cement was allowed to harden with the knee in full extension. While the cement was hardening, the remaining soft tissues were then injected with a ropivacaine solution, which consisted of 246.25 mg of ropivacaine, 0.5 mg of epinephrine, 30 mg of Toradol, 80 g of clonidine, and 48.45 mL of sterile water, for a total of 100 mL of fluid injected. After the cemented hardened. The tourniquet was released, and hemostasis was obtained. A second gram of transexamic acid was given. The knee was again irrigated. The knee was again taken through range of motion and found to be stable throughout all range of motion of 0-130 , and the patella tracked normally. The fascia was then closed with #2 strata fix suture. The subcutaneous tissue was closed with 3-0 Vicryl and 3-0 strata fix. Dermabond glue was used for the skin and placed with the knee in flexion. The patient was placed in a sterile silver dressing. Patient was then transferred to recovery room in stable condition. The botany laboratory assistant CLEVELAND Headley was required due the complexity surgery and the need for a skilled surgical technician. She assisted in positioning, draping, retraction, and closure of the wound.
[2018-03-31] MEDS ORDERED: ROPIVACAINE 1,100 MG, SODIUM CHLORIDE 0.9% 330 ML MISCELLANE PRN ×2 (11:56)
[2018-03-31] MEDS: SODIUM CHLORIDE 0.9% 1,000 ML IV SCH (12:00)
[2018-03-31] MEDS ORDERED: MORPHINE SULFATE 4 MG/ML SYRINGE IVP ONE (12:00)
[2018-03-31] MEDS ORDERED: diphenhydrAMINE 50 MG/ML 1 ML VIAL IVP ONE (12:14)
[2018-03-31] MEDS ORDERED: LACTATED RINGERS 1,000 ML IV ONE (12:20)
--- NOTE | 2018-03-31 13:20 | XR ---
EXAMINATION TYPE: XR knee limited RT DATE OF EXAM: 03/31/2018 CLINICAL HISTORY: Right knee pain and arthritis status post total knee replacement. TECHNIQUE: Portable AP and crosstable lateral views of the right knee are obtained immediately posto peratively. COMPARISON: None FINDINGS: Metallic hardware from total right knee arthroplasty is seen and appears satisfactory in a lignment and position. There is evidence of recent surgery with diffuse subcutaneous gas and soft ti ssue swelling noted. IMPRESSION: METALLIC HARDWARE FROM TOTAL RIGHT KNEE ARTHROPLASTY IS SATISFACTORY IN ALIGNMENT.
--- NOTE | 2018-03-31 13:26 | P.CONS ---
History of Present Illness - Reason for Consult Consult date: 03/31/18 Medical management Requesting physician: Kiran Ferguson - Chief Complaint Right knee osteoarthritis - History of Present Illness This is a 87-year-old female with past medical history noted below significant for severe osteoarthritis of the right knee who was admitted to the hospital for elective total right knee arthroplasty. Patient is postoperative day #0. She tolerated the procedure well. She does not have any concerns at this time. I was asked to see her for medical management. Review of Systems Review of system: 14 points review of systems were obtained and were negative except to what were mentioned in the HPI. Past Medical History Past Medical History: Cancer, Diabetes Mellitus, GERD/Reflux, Hypertension, Osteoarthritis (OA) Additional Past Medical History / Comment(s): NON-HODGKIN'S LYMPHOMA 2002-had chemo,radiation, urinary incontinence History of Any Multi-Drug Resistant Organisms: None Reported Past Surgical History: Cholecystectomy, Joint Replacement Additional Past Surgical History / Comment(s): left knee replaced 2016, TRK Past Anesthesia/Blood Transfusion Reactions: No Reported Reaction Past Psychological History: No Psychological Hx Reported Smoking Status: Never smoker Past Alcohol Use History: None Reported Past Drug Use History: None Reported - Past Family History Mother Family Medical History: Cancer, Deep Vein Thrombosis (DVT) Medications and Allergies Home Medications Medication Instructions Recorded Confirmed Type metFORMIN HCL [Glucophage] 500 mg PO BID 03/16/15 03/31/18 History Lovastatin 40 mg PO HS 03/28/17 03/31/18 History amLODIPine [Norvasc] 10 mg PO HS 03/28/17 03/31/18 History glipiZIDE [Glipizide Xl] 10 mg PO BID@0900,1800 03/28/17 03/31/18 History sitaGLIPtin PHOSPHATE [Januvia] 100 mg PO DAILY 03/28/17 03/31/18 History Lisinopril [Zestril] 40 mg PO DAILY 04/01/17 03/31/18 History Diphenox-Atrop 2.5-0.025 mg 1 tab PO QID PRN 03/21/18 03/31/18 History [Lomotil] Ibuprofen [Advil] 200 mg PO Q8HR PRN 03/21/18 03/31/18 History Allergies Allergy/AdvReac Type Severity Reaction Status Date / Time No Known Allergies Allergy Verified 03/31/18 12:56 Physical Exam Vitals: Vital Signs Temp Pulse Resp BP Pulse Ox 03/31/18 12:30 80 16 99 03/31/18 12:00 85 14 136/63 93 L 03/31/18 11:48 97.6 F 85 18 129/69 97 03/31/18 08:45 76 16 137/61 100 03/31/18 08:20 97 F L 86 18 153/92 100 Intake and Output 03/30/18 03/31/18 03/31/18 22:59 06:59 14:59 Intake Total 1001 Output Total 50 Balance 951 Intake: IV 1001 Output: Estimated Blood Loss 50 Other: Weight 74.389 kg General: The patient is awake and alert, in no distress Eye: there is normal conjunctiva bilaterally. Neck: The neck is supple, there is no JVD. Cardiovascular: Normal S1-S2, no S3-S4, no murmurs. Respiratory: Lungs clear to auscultation bilaterally Gastrointestinal: Abdomen is soft, nontender Musculoskeletal: There is no pedal edema. Neurological:. Speech is normal. Skin: Skin is warm and dry Results Labs: Abnormal Lab Results - Last 24 Hours (Table) 03/31/18 Range/Units 08:13 POC Glucose (mg/dL) 163 H (75-99) mg/dL Assessment and Plan Assessment: 1. Postoperative day #0 status post total right knee arthroplasty. Orthopedic following. Continue postoperative care. 2. DVT prophylaxis with full dose aspirin twice daily per orthopedic protocol 3. Type 2 diabetes mellitus: relatively well-controlled with triple therapy. 4. Mixed hyperlipidemia: Continue home dose of statin 5. Non-Hodgkin lymphoma: In remission. Following with hematology yearly 6. Essential hypertension: Blood pressure well-controlled Today, I reviewed her medication list and lab work results. Continue current regimen. Thank you very much for the consultation. I will continue to follow up on the patient closely.
[2018-03-31 16:59] LABS: Glucose,Whole Blood 127 mg/dL (75-99)
[2018-03-31] MEDS: INSULIN ASPART 100 UNIT/ML 1 ML 10 ML VIAL SQ SCH ×2 (17:09→23:39)
[2018-03-31] MEDS: ceFAZolin IN SWFI 2 GM/20 ML SYRINGE IVP SCH ×2 (17:27→23:41)
[2018-03-31] MEDS: glipiZIDE 10 MG TAB PO SCH (18:27)
[2018-03-31 20:07] LABS: Glucose,Whole Blood 182 mg/dL (75-99)
[2018-03-31] MEDS ORDERED: ATORVASTATIN 10 MG TAB PO SCH (21:00)
[2018-03-31] MEDS: ASPIRIN 325 MG TAB PO SCH (23:38)
[2018-03-31] MEDS: SENNOSIDES-DOCUSATE SODIUM 1 EACH TAB PO SCH (23:38)
[2018-03-31] MEDS: metFORMIN 500 MG TAB PO SCH (23:39)
[2018-03-31] MEDS: amLODIPine 10 MG TAB PO SCH (23:39)
[2018-04-01] MEDS: SODIUM CHLORIDE 0.9% 1,000 ML IV SCH ×2 (01:28→08:03)
[2018-04-01] MEDS: LACTATED RINGERS 1,000 ML IV SCH (06:24)
--- NOTE | 2018-04-01 06:42 | P.PN ---
Progress Note - Text 04/01 630 87-year-old female status post total knee replacement. Patient has an On-Q pump the solution running at 6 mL an hour and has a VAS score of 2 at rest. Last night I had the solution rate changed from 8-6, patient had numbness and weakness in her leg and was unable to bear weight. She is doing much better this morning and I increase the rate 8 mL an hour.
--- NOTE | 2018-04-01 06:48 | P.ONQ ---
Anesthesiology Proc Note - PNB - Peripheral Nerve Block Performed Right Adductor Canal Infusion Time Out Performed: Yes Procedure Start Time: 08: Procedure Stop Time: : Indication: Acute Post-Operative Pain, Requested by physician Sedation Type: Sedate with meaningful contact maintained Preparation: Sterile Dressing Position: Supine Catheter: Indwelling Needle Types: On-Q Needle Size: 50mm (2") Needle Gauge: 21 Technique: Ultrasound Injectate: 0.5% Ropivacaine (see comment for volume) (ropi .5% 20cc) Blood Aspirated: No Pain Paresthesia on Injection Noted: No Resistance on Injection: Normal Events: Uneventful and Well Tolerated
[2018-04-01 07:19] LABS: Glucose,Whole Blood 137 mg/dL (75-99)
[2018-04-01 07:31] LABS: Basophils % (A) 0 %; Eosinophils # (A) 0.1 k/uL (0-0.7); Eosinophils % (A) 1 %; HCT 32.4 % (34.0-46.0); HGB 10.8 gm/dL (11.4-16.0); Lymphocytes # (A) 0.9 k/uL (1.0-4.8); Lymphocytes % (A) 11 %; MCH 29.3 pg (25.0-35.0); MCHC 33.3 g/dL (31.0-37.0); Mean Platelet Volume 6.9; Monocytes # (A) 0.3 k/uL (0-1.0); Monocytes % (A) 4 %; Neutrophils % (A) 83 %; Platelet Count 223 k/uL (150-450); RBC 3.68 m/uL (3.80-5.40); RDW 12.9 % (11.5-15.5); WBC 8.5 k/uL (3.8-10.6)
[2018-04-01 07:55] LABS: Albumin 3.4 g/dL (3.5-5.0); Calcium 8.8 mg/dL (8.4-10.2); Potassium 4.5 mmol/L (3.5-5.1); Total Bilirubin 0.3 mg/dL (0.2-1.3); Total Protein 5.4 g/dL (6.3-8.2)
[2018-04-01] MEDS: INSULIN ASPART 100 UNIT/ML 1 ML 10 ML VIAL SQ SCH ×4 (07:59→21:48)
[2018-04-01] MEDS: MELOXICAM 7.5 MG TAB PO SCH (08:01)
[2018-04-01] MEDS: ASPIRIN 325 MG TAB PO SCH ×2 (08:01→21:49)
[2018-04-01] MEDS: metFORMIN 500 MG TAB PO SCH ×2 (08:02→21:49)
[2018-04-01] MEDS: LINAGLIPTIN 5 MG TABLET PO SCH (08:02)
[2018-04-01] MEDS: glipiZIDE 10 MG TAB PO SCH ×2 (08:02→17:03)
[2018-04-01] MEDS: LISINOPRIL 20 MG TAB PO SCH (08:02)
--- NOTE | 2018-04-01 09:21 | P.PN ---
Subjective Progress Note Date: 04/01/18 This is an 87-year-old female who is status post right total knee arthroplasty. This is postoperative day #1. Patient is seen and evaluated at bedside with Dr. Kiran Ferguson. Patient does complain of pain in the right knee, but states that she has been up and walking with physical therapy. Patient denies any fever/chills, numbness, weakness, tingling, abdominal pain, shortness of breath or chest pain. Objective - Vital Signs Vital signs: Vital Signs Temp 98.6 F 04/01/18 07:00 Pulse 87 04/01/18 07:00 Resp 16 04/01/18 07:17 BP 135/61 04/01/18 07:00 Pulse Ox 98 04/01/18 07:00 Intake & Output 03/31/18 04/01/18 04/01/18 18:59 06:59 18:59 Intake Total 1868 180 Output Total 170 640 Balance 1698 -640 180 Weight 74.389 kg Intake: IV 1131 Sodium Chloride 0.9% 1, 130 000 ml @ 65 mls/hr IV . [id number] [facility] Rx#:[id number] Oral 737 180 Output: Urine 120 640 Estimated Blood Loss 50 Other: Voiding Method Bedpan Bedside Commode Bedpan # Voids 1 1 - Exam Vital signs are stable. Patient is in no acute distress and is alert and oriented 3. Calf is soft and nontender to palpation. Dressing is clean, dry, and intact. Patient has full foot and ankle motion without pain or difficulty. Neurovascular status and circulatory status are intact. - Labs CBC & Chem 7: 04/01/18 06:55 04/01/18 06:55 Labs: Abnormal Lab Results - Last 24 Hours (Table) 03/31/18 03/31/18 04/01/18 Range/Units 16:51 20:05 06:55 RBC 3.68 L (3.80-5.40) m/uL Hgb 10.8 L (11.4-16.0) gm/dL Hct 32.4 L (34.0-46.0) % Lymphocytes # 0.9 L (1.0-4.8) k/uL Glucose (74-99) mg/dL POC Glucose (mg/dL) 127 H 182 H (75-99) mg/dL AST (14-36) U/L ALT (9-52) U/L Total Protein (6.3-8.2) g/dL Albumin (3.5-5.0) g/dL 04/01/18 04/01/18 Range/Units 06:55 07:07 RBC (3.80-5.40) m/uL Hgb (11.4-16.0) gm/dL Hct (34.0-46.0) % Lymphocytes # (1.0-4.8) k/uL Glucose 139 H (74-99) mg/dL POC Glucose (mg/dL) 137 H (75-99) mg/dL AST 245 H (14-36) U/L ALT 155 H (9-52) U/L Total Protein 5.4 L (6.3-8.2) g/dL Albumin 3.4 L (3.5-5.0) g/dL Assessment and Plan (1) Primary osteoarthritis of right knee Current Visit: Yes Status: Acute Code(s): M17.11 - UNILATERAL PRIMARY OSTEOARTHRITIS, RIGHT KNEE SNOMED Code(s): 029829485739004 (2) S/P total knee arthroplasty Current Visit: Yes Status: Acute Code(s): Z96.659 - PRESENCE OF UNSPECIFIED ARTIFICIAL KNEE JOINT SNOMED Code(s): 7080336365524 Plan: #1 Continue with routine postoperative care, leave dressing in place for 10 days. #2 Anticoagulation with aspirin. #3 Physical therapy and CPM today. #4 Appreciate input from medicine. #5 Anticipate discharge home with home care likely tomorrow.
[2018-04-01] MEDS ORDERED: HYDROmorphone 2 MG TAB PO PRN ×3 (09:28→09:29)
[2018-04-01] MEDS ORDERED: HYDROmorphone 4 MG TABLET PO PRN (09:29)
[2018-04-01 11:13] LABS: Glucose,Whole Blood 123 mg/dL (75-99)
--- NOTE | 2018-04-01 12:45 | P.PN ---
Subjective Progress Note Date: 04/01/18 Patient is doing fairly well today. Right knee pain is not well controlled. She was up with physical therapy earlier. Objective - Vital Signs Vital signs: Vital Signs Temp 98.6 F 04/01/18 07:00 Pulse 87 04/01/18 07:00 Resp 16 04/01/18 07:17 BP 135/61 04/01/18 07:00 Pulse Ox 98 04/01/18 07:00 Intake & Output 03/31/18 04/01/18 04/01/18 18:59 06:59 18:59 Intake Total 1868 180 Output Total 170 640 Balance 1698 -640 180 Weight 74.389 kg Intake: IV 1131 Sodium Chloride 0.9% 1, 130 000 ml @ 65 mls/hr IV . [id number] [facility] Rx#:[id number] Oral 737 180 Output: Urine 120 640 Estimated Blood Loss 50 Other: Voiding Method Bedpan Bedside Commode Bedpan # Voids 1 1 1 - Exam General: The patient is awake and alert, in no distress Eye: there is normal conjunctiva bilaterally. Neck: The neck is supple, there is no JVD. Cardiovascular: Normal S1-S2, no S3-S4, no murmurs. Respiratory: Lungs clear to auscultation bilaterally Gastrointestinal: Abdomen is soft, nontender Musculoskeletal: There is no pedal edema. Neurological:. Speech is normal. Skin: Skin is warm and dry - Labs CBC & Chem 7: 04/01/18 06:55 04/01/18 06:55 Labs: Abnormal Lab Results - Last 24 Hours (Table) 03/31/18 03/31/18 04/01/18 Range/Units 16:51 20:05 06:55 RBC 3.68 L (3.80-5.40) m/uL Hgb 10.8 L (11.4-16.0) gm/dL Hct 32.4 L (34.0-46.0) % Lymphocytes # 0.9 L (1.0-4.8) k/uL Glucose (74-99) mg/dL POC Glucose (mg/dL) 127 H 182 H (75-99) mg/dL AST (14-36) U/L ALT (9-52) U/L Total Protein (6.3-8.2) g/dL Albumin (3.5-5.0) g/dL 04/01/18 04/01/18 04/01/18 Range/Units 06:55 07:07 11:07 RBC (3.80-5.40) m/uL Hgb (11.4-16.0) gm/dL Hct (34.0-46.0) % Lymphocytes # (1.0-4.8) k/uL Glucose 139 H (74-99) mg/dL POC Glucose (mg/dL) 137 H 123 H (75-99) mg/dL AST 245 H (14-36) U/L ALT 155 H (9-52) U/L Total Protein 5.4 L (6.3-8.2) g/dL Albumin 3.4 L (3.5-5.0) g/dL Assessment and Plan Assessment: 1. Postoperative day #1 status post total right knee arthroplasty. Orthopedic following. Continue postoperative care. 2. DVT prophylaxis with full dose aspirin twice daily per orthopedic protocol 3. Type 2 diabetes mellitus: relatively well-controlled with triple therapy. 4. Mixed hyperlipidemia: Continue home dose of statin 5. Non-Hodgkin lymphoma: In remission. Following with hematology yearly 6. Essential hypertension: Blood pressure well-controlled 7. Acute transaminitis, may be drug-induced. We will hold Lipitor tonight. Repeat CMP in the morning.
[2018-04-01 12:54] LABS: Hemoglobin A1C 7.2 % (4.0-6.0)
[2018-04-01] MEDS: HYDROcodone/APAP 5-325MG 1 EACH TAB PO PRN ×2 (15:05→21:48)
[2018-04-01 16:48] LABS: Glucose,Whole Blood 257 mg/dL (75-99)
[2018-04-01 21:09] LABS: Glucose,Whole Blood 261 mg/dL (75-99)
[2018-04-01] MEDS: amLODIPine 10 MG TAB PO SCH (21:49)
[2018-04-01] MEDS: SENNOSIDES-DOCUSATE SODIUM 1 EACH TAB PO SCH (21:49)
[2018-04-02] MEDS: LACTATED RINGERS 1,000 ML IV SCH (05:01)
[2018-04-02 07:03] LABS: Glucose,Whole Blood 163 mg/dL (75-99)
[2018-04-02 07:42] LABS: Albumin 3.4 g/dL (3.5-5.0); Potassium 4.2 mmol/L (3.5-5.1); Total Bilirubin 0.5 mg/dL (0.2-1.3); Total Protein 5.5 g/dL (6.3-8.2)
[2018-04-02] MEDS: glipiZIDE 10 MG TAB PO SCH (08:28)
[2018-04-02] MEDS: LISINOPRIL 20 MG TAB PO SCH (08:28)
[2018-04-02] MEDS: ASPIRIN 325 MG TAB PO SCH (08:28)
[2018-04-02] MEDS: metFORMIN 500 MG TAB PO SCH (08:29)
[2018-04-02] MEDS: LINAGLIPTIN 5 MG TABLET PO SCH (08:29)
[2018-04-02] MEDS: MELOXICAM 7.5 MG TAB PO SCH (08:29)
[2018-04-02] MEDS: INSULIN ASPART 100 UNIT/ML 1 ML 10 ML VIAL SQ SCH (08:30)
[2018-04-02 08:51] VITALS: BP 150/69; PULSE 86; RESP 16; TEMP 97.8
--- NOTE | 2018-04-02 09:00 | P.DS ---
Providers Date of admission: 03/31/18 07:13 Expected date of discharge: 04/02/18 Attending physician: Kiran Ferguson Consults: 03/31/18 09:41 Consult Physician Routine Consulting Provider: Marquis Moreno Consult Reason/Comments: medical management Do you want consulting provider notified?: Yes Primary care physician: Marquis Moreno - Discharge Diagnosis(es) (1) Primary osteoarthritis of right knee Status: Acute (2) S/P total knee arthroplasty Status: Acute Hospital Course: This is a pleasant 87-year-old female last seen in our office with complaints of right knee pain. Patient has known history of degenerative arthritis of the right knee and presented to discuss options. After discussion and consideration , patient elected to proceed with a total knee arthroplasty of the right knee. The patient was seen preoperatively and medically cleared for surgery by her primary care physician. The patient was admitted to [facility] and underwent right total knee arthroplasty on 03/31/[address] Ferguson. The procedure was performed without complications or sequelae. The patient has done well postoperatively. The patient was seen and evaluated at bedside today and denies any new complaints. Pain is reasonably controlled. Dressing is clean dry and intact. Incision looks fine with no erythema or active drainage. Calf is soft and nontender. The patient has full foot and ankle motion without difficulty. Patient's right lower extremity is neurovascular intact. Patient is orthopedically stable for discharge to home today. Pertinent Studies: Laboratory Tests 04/01/18 06:55 WBC 8.5 RBC 3.68 L Hgb 10.8 L Hct 32.4 L Patient Condition at Discharge: Stable Plan - Discharge Summary Discharge Rx Participant: Yes New Discharge Prescriptions: New Aspirin 325 mg PO BID #60 tab HYDROcodone/APAP 5-325MG [Canaan 5-325] 1 - 2 tab PO Q4-6H PRN #90 tab PRN Reason: Pain Sennosides [Senokot] 1 tab PO BID #60 tablet No Action metFORMIN HCL [Glucophage] 500 mg PO BID amLODIPine [Norvasc] 10 mg PO HS Lovastatin 40 mg PO HS sitaGLIPtin PHOSPHATE [Januvia] 100 mg PO DAILY glipiZIDE [Glipizide Xl] 10 mg PO BID@0900,1800 Lisinopril [Zestril] 40 mg PO DAILY Ibuprofen [Advil] 200 mg PO Q8HR PRN PRN Reason: Pain Diphenox-Atrop 2.5-0.025 mg [Lomotil] 1 tab PO QID PRN PRN Reason: Diarrhea Discharge Medication List metFORMIN HCL [Glucophage] 500 mg PO BID 03/16/15 [History] Lovastatin 40 mg PO HS 03/28/17 [History] amLODIPine [Norvasc] 10 mg PO HS 03/28/17 [History] glipiZIDE [Glipizide Xl] 10 mg PO BID@0900,1800 03/28/17 [History] sitaGLIPtin PHOSPHATE [Januvia] 100 mg PO DAILY 03/28/17 [History] Lisinopril [Zestril] 40 mg PO DAILY 04/01/17 [History] Diphenox-Atrop 2.5-0.025 mg [Lomotil] 1 tab PO QID PRN 03/21/18 [History] Ibuprofen [Advil] 200 mg PO Q8HR PRN 03/21/18 [History] Aspirin 325 mg PO BID #60 tab 04/01/18 [Rx] HYDROcodone/APAP 5-325MG [Canaan 5-325] 1 - 2 tab PO Q4-6H PRN #90 tab 04/01/18 [ Rx] Sennosides [Senokot] 1 tab PO BID #60 tablet 04/01/18 [Rx] Follow up Appointment(s)/Referral(s): Kiran Ferguson DO [Doctor of Osteopathic Medicine] - 04/16/18 1:30 pm Ambulatory/Diagnostic Orders: Continuous Passive Motion (CPM) Machine [DME.AMB1] Time Frame: 3 Weeks, Location : Determined By Patient Activity/Diet/Wound Care/Special Instructions: [facility] - [phone] [facility] - Please call once home to arrange delivery -[phone] Weightbearing as tolerated with a walker CPM 5-6h daily Leave dressing intact. May be removed by home care nurse in 10 days. May shower with dressing on. [facility] with questions or concerns [phone] Discharge Disposition: HOME WITH HOME HEALTH SERVICES
== END 2018-04-02 11:35 | disposition home health service (06) | DRG 470 ==
LOC: 2ORMAIN 07:13 → 3SUR 11:44
PROVIDERS: ADMIT Orthopaedic Surgery; ATTEND Orthopaedic Surgery
PROC: 0SRC069 Replacement of Right Knee Joint with Oxidized Zirconium on Polyethylene Synthetic Substitute, Cemented, Open Approach (ICD-10-PCS; principal; 2018-03-31 09:50)
DX: M17.11 Unilateral primary osteoarthritis, right knee (principal); E11.9 Type 2 diabetes mellitus without complications; G89.18 Other acute postprocedural pain; I10 Essential (primary) hypertension; Z96.652 Presence of left artificial knee joint; E61.2 Magnesium deficiency; E78.2 Mixed hyperlipidemia; K21.9 Gastro-esophageal reflux disease without esophagitis; E55.9 Vitamin D deficiency, unspecified; R32 Unspecified urinary incontinence; R74.0 Nonspecific elevation of levels of transaminase and lactic acid dehydrogenase [LDH]; Z79.84 Long term (current) use of oral hypoglycemic drugs; Z79.899 Other long term (current) drug therapy; Z92.21 Personal history of antineoplastic chemotherapy; Z85.72 Personal history of non-Hodgkin lymphomas; Z90.49 Acquired absence of other specified parts of digestive tract; Z98.41 Cataract extraction status, right eye; Z98.42 Cataract extraction status, left eye; Z96.1 Presence of intraocular lens; Z83.3 Family history of diabetes mellitus; Z92.3 Personal history of irradiation
CPT/HCPCS: 80053; 83036; 85025; 88300

== ENCOUNTER → 2018-09-18 | Outpatient (CLI) | payer MEDICARE ==
--- NOTE | 2018-09-22 09:16 | MM ---
Reason for exam: screening (asymptomatic). Last mammogram was performed 1 year and 3 months ago. History: Patient is postmenopausal and has history of other cancer at age 72. Family history of breast cancer in aunt at age 70. Physical Findings: A clinical breast exam by your physician is recommended on an annual basis and results should be correlated with mammographic findings. MG 3D Screening Mammo W/Cad Bilateral CC and MLO view(s) were taken. Prior study comparison: June 12, 2017, bilateral MG 3d screening mammo w/cad. January 10, 2016, bilateral MG screening mammo w CAD. Finding: There are stabl grouped/clustered calcifications in both breasts. There is a chronic nodularity bilaterally. No significant changes in finding since June 12, 2017 and January 10, 2016. ASSESSMENT: Benign, BI-RAD 2 RECOMMENDATION: Routine screening mammogram of both breasts in 1 year.
== END | disposition home or self-care (01) ==
LOC: RADMAMWWP 13:08
PROVIDERS: ATTEND Internal Medicine
DX: Z12.31 Encounter for screening mammogram for malignant neoplasm of breast (principal)
CPT/HCPCS: 77063; 77067

== ENCOUNTER → 2019-10-15 | Outpatient (CLI) | payer MEDICARE ==
--- NOTE | 2019-10-19 09:35 | MM ---
Reason for exam: screening (asymptomatic). Last mammogram was performed 1 year and 1 month ago. History: Patient is postmenopausal and has history of other cancer at age 72. Family history of breast cancer in aunt at age 70. Physical Findings: A clinical breast exam by your physician is recommended on an annual basis and results should be correlated with mammographic findings. MG 3D Screening Mammo W/Cad Bilateral CC and MLO view(s) were taken. Prior study comparison: September 18, 2018, bilateral MG 3d screening mammo w/cad. June 12, 2017, bilateral MG 3d screening mammo w/cad. The breast tissue is heterogeneously dense. This may lower the sensitivity of mammography. Stable benign calcifications. There is no discrete abnormality. No significant changes when compared with prior studies. ASSESSMENT: Benign, BI-RAD 2 RECOMMENDATION: Routine screening mammogram of both breasts in 1 year.
== END | disposition home or self-care (01) ==
LOC: RADMAMWWP 11:04
PROVIDERS: ATTEND Internal Medicine
DX: Z12.31 Encounter for screening mammogram for malignant neoplasm of breast (principal)
CPT/HCPCS: 77063; 77067

== ENCOUNTER → 2021-06-22 | Outpatient (CLI) | payer MEDICARE ==
--- NOTE | 2021-06-26 08:51 | MM ---
Reason for exam: screening (asymptomatic). Last mammogram was performed 1 year and 8 months ago. History: Patient is postmenopausal and has history of other cancer at age 72. Family history of breast cancer in aunt at age 70. Physical Findings: A clinical breast exam by your physician is recommended on an annual basis and results should be correlated with mammographic findings. MG 3D Screening Mammo W/Cad Bilateral CC and MLO view(s) were taken. Prior study comparison: October 15, 2019, bilateral MG 3d screening mammo w/cad. September 18, 2018, bilateral MG 3d screening mammo w/cad. The breast tissue is heterogeneously dense. This may lower the sensitivity of mammography. Grouped course calcifications bilaterally are unchanged. No significant changes when compared with prior studies. ASSESSMENT: Benign, BI-RAD 2 RECOMMENDATION: Routine screening mammogram of both breasts in 1 year.
== END | disposition home or self-care (01) ==
LOC: RADMAMWWP 13:17
PROVIDERS: ATTEND Internal Medicine
DX: Z12.31 Encounter for screening mammogram for malignant neoplasm of breast (principal)
CPT/HCPCS: 77063; 77067

== ENCOUNTER → 2022-07-25 | Outpatient (CLI) | payer MEDICARE ==
--- NOTE | 2022-07-26 08:00 | MM ---
Reason for Exam: Screening (asymptomatic). Last mammogram was performed 1 year(s) and 1 month(s) ago. Patient History: Menarche at age 14. First Full-Term at age 21. Postmenopausal. Other cancer, age 72. Maternal aunt had breast cancer, age 70. Prior Study Comparison: 09/18/2018 Bilateral Screening Mammogram, [facility]. 10/15/2019 Bilateral Screening Mammogram, [facility]. 06/22/2021 Bilateral Screening Mammogram, [facility]. Tissue Density: The breast tissue is heterogeneously dense. This may lower the sensitivity of mammography. Findings: Analyzed By CAD. There is no suspicious group of microcalcifications or new suspicious mass in either breast. Grouped coarse calcifications bilaterally are unchanged. No significant change from prior studies. Overall Assessment: Benign, BI-RAD 2 Management: Screening Mammogram of both breasts in 1 year. A clinical breast exam by your physician is recommended on an annual basis and results should be correlated with mammographic findings. Electronically signed and approved by: Woody West D.O.
== END | disposition home or self-care (01) ==
LOC: RADMAMWWP 15:59
PROVIDERS: ATTEND Internal Medicine
DX: Z12.31 Encounter for screening mammogram for malignant neoplasm of breast (principal)
CPT/HCPCS: 77063; 77067